=== PATIENT | male | born 1965 | race Caucasian/White ===

== ENCOUNTER → 2017-10-30 | Outpatient (CLI) | payer BC ==
[~2017-10-30] MED LIST: CIPR500T94 PO; COLC0.6T34 PO; INDO75CA3 PO; INSU100V8 SQ; LOSA25TA4 PO; METF10002 PO
--- NOTE | 2017-10-30 10:34 | RAD ---
Indication: Left shoulder pain. Time of exam 10:25 AM 3 views of the left shoulder were obtained. Glenohumeral and acromial clavicular alignment are normal. Acromiohumeral space is normal. No fracture or dislocation is detected. Impression: No acute bony abnormality is detected.
== END | disposition home or self-care (01) ==
LOC: PMG 10:14
PROVIDERS: ATTEND Physician Assistant
DX: M25.512 Pain in left shoulder (principal)
CPT/HCPCS: 73030

== ENCOUNTER → 2019-05-26 | Outpatient (CLI) | payer BC ==
[~2019-05-26] MED LIST changes: +LOSA25TA11 PO; -LOSA25TA4 PO; -METF10002 PO; +METF10007 PO
--- NOTE | 2019-05-26 09:11 | RAD ---
3 views right foot 05/26/2019 12:00 AM Indication: Infected right first toe Comparison: None Findings: No evidence of acute fracture or dislocation is identified articular surfaces are uninterrupted. No erosive changes or significant periosteal reaction is identified. Soft tissue thickening and irregularity involving the distal first toe noted. Note that radiographs can be insensitive for acute osteomyelitis. Atherosclerotic vascular calcification in the feet noted. IMPRESSION: Soft tissue irregularity of the distal first toe without radiographic evidence of chronic osteomyelitis. There is continued clinical concern for acute osteomyelitis, MRI imaging is recommended. Electronically signed by: Abdullahi Upton MD (05/26/2019 9:08 AM) [id number]
== END | disposition home or self-care (01) ==
LOC: PMG 08:15
PROVIDERS: ATTEND Registered Nurse
DX: M79.89 Other specified soft tissue disorders (principal)
CPT/HCPCS: 73630

== ENCOUNTER → 2019-06-03 | Outpatient (CLI) | payer BC ==
[~2019-06-03] MED LIST changes: +IOHEXOL 240 MG/ML 50ML VIAL. ONE
[2019-06-03 09:06] LABS: CREATININE 1.1 mg/dL (0.7-1.3); GFR 69.5
[2019-06-03] MEDS: IOHEXOL 300 MG/ML 75 ML VIAL. IV ONE (09:36)
--- NOTE | 2019-06-03 11:38 | RAD ---
EXAM: CT Abdomen and Pelvis with IV contrast CLINICAL HISTORY: 30 pound weight loss, abdominal pain, umbilical pain and cramping. COMPARISON: none TECHNIQUE: Helical CT of the abdomen and pelvis was performed following the administration of intravenous contrast. Axial, coronal and sagittal reformatted images were generated. PQRS compliance statement - One or more of the following individualized dose reduction techniques were utilized for this study: 1. Automated exposure control 2. Adjustment of the mA and/or kV according to patient size 3. Use of iterative reconstruction technique FINDINGS: Lower chest: Linear opacities in the lower lobe likely scarring/atelectasis. Abdomen and Pelvis: No focal liver lesion. Spleen is unremarkable. Adrenal glands are normal. Pancreas is unremarkable. Gallbladder is normal. No biliary ductal dilatation. Symmetric nephrograms. Subcentimeter hypodense right lower pole renal lesion is too small to characterize. No hydronephrosis. No hydroureter. Bladder is unremarkable. Moderate colonic stool content is seen throughout the colon. Appendix is normal. No small or large bowel dilatation. No evidence of bowel obstruction. Small fat-containing periumbilical hernia with narrow base is seen with trace fat infiltration. No associated fluid is seen. No abdominal or pelvic ascites. No abdominal or pelvic lymphadenopathy. Prominent right common femoral and inguinal lymph nodes are seen, for example a 1.5 x 0.8 cm lymph node is seen. A few prominent mesenteric lymph nodes are also seen. Aorta is normal in caliber. Bones: Osseous structures are grossly unremarkable. IMPRESSION: No abdominal or pelvic lymphadenopathy by size criteria although a few mildly prominent mesenteric and right inguinal/common femoral lymph nodes are seen. No obvious primary malignancy is identified within the limitations of CT technique. Fat-containing periumbilical hernia with trace fat stranding/infiltration, may be symptomatic. Electronically signed by: Adonis Queen MD (06/03/2019 11:35 AM) [facility]
== END | disposition home or self-care (01) ==
LOC: CT 08:23
PROVIDERS: ATTEND Internal Medicine Gastroenterology
DX: K42.9 Umbilical hernia without obstruction or gangrene (principal); N28.89 Other specified disorders of kidney and ureter; R91.8 Other nonspecific abnormal finding of lung field
CPT/HCPCS: 36415; 74177; 82565; 84520; Q9967

== ENCOUNTER → 2019-08-11 | Outpatient (CLI) | payer BC ==
[~2019-08-11] MED LIST changes: -IOHEXOL 240 MG/ML 50ML VIAL. ONE
[2019-08-11 12:22] LABS: BASO # 0.1 x10^3/uL (0.0-0.2); BASO % 1 % (0-3); EOS # 0.5 x10^3/uL (0.0-0.7); EOS % 7 % (0-3); HEMOGLOBIN 15.6 g/dL (13.0-17.5); LYMPH # 2.4 x10^3/uL (1.0-4.8); LYMPH % 33 % (24-48); MEAN CORPUSCULAR HEMOGLOBIN 32 pg (25-35); MEAN CORPUSCULAR HGB CONC 35 g/dL (31-37); MEAN CORPUSCULAR VOLUME 93 fL (79-100); MONO # 0.5 x10^3/uL (0.0-1.1); MONO % 7 % (0-9); NEUT # 3.8 x10^3uL (1.8-7.7); NEUT % 53 % (31-73); PLATELET COUNT 286 x10^3/uL (140-400); RED BLOOD COUNT 4.82 x10^6/uL (4.30-5.70); RED CELL DISTRIBUTION WIDTH 12.2 % (11.5-14.5); WHITE BLOOD COUNT 7.3 x10^3/uL (4.0-11.0)
[2019-08-11 12:36] LABS: ALBUMIN/GLOBULIN RATIO 0.9 (1.0-1.7); ALK PHOS 72 U/L (46-116); ALT (SGPT) 28 U/L (16-63); ANION GAP 8 (6-14); AST (SGOT) 27 U/L (15-37); BLOOD UREA NITROGEN 27 mg/dL (8-26); BUN/CREATININE RATIO 21 (6-20); CALCIUM 9.4 mg/dL (8.5-10.1); CARBON DIOXIDE 30 mmol/L (21-32); CHLORIDE 99 mmol/L (98-107); CREATININE 1.3 mg/dL (0.7-1.3); GFR 57.3; GLUCOSE 134 mg/dL (70-99); POTASSIUM 4.1 mmol/L (3.5-5.1); SODIUM 137 mmol/L (136-145); TOTAL BILIRUBIN 0.3 mg/dL (0.2-1.0); TOTAL PROTEIN 8.4 g/dL (6.4-8.2)
[2019-08-11 12:37] LABS: C REACTIVE PROTEIN < 0.5 mg/L (0-3.3)
[2019-08-11 13:27] LABS: SEDIMENTATION RATE 36 (0-15)
--- NOTE | 2019-08-11 13:32 | RAD ---
EXAM: Right foot, 3 views. HISTORY: Arthritis. COMPARISON: None. FINDINGS: 3 views of the right foot are obtained. There is third proximal interphalangeal joint space narrowing with subchondral sclerosis and subchondral cyst formation. There is bandage material overlying the distal first phalanx. There is a small accessory navicular. There are vascular calcifications. IMPRESSION: 1. Degenerative change involving the right third proximal interphalangeal joint. 2. No acute osseous finding. Electronically signed by: Mckenna Elmore MD (08/11/2019 1:29 PM) [place] [id number]
== END | disposition home or self-care (01) ==
LOC: DXRAD 11:30
PROVIDERS: ATTEND Podiatrist Foot & Ankle Surgery
DX: E11.621 Type 2 diabetes mellitus with foot ulcer (principal); M19.071 Primary osteoarthritis, right ankle and foot; M20.11 Hallux valgus (acquired), right foot; M25.871 Other specified joint disorders, right ankle and foot; R26.89 Other abnormalities of gait and mobility
CPT/HCPCS: 36415; 73630; 80053; 85025; 85651; 86140

== ENCOUNTER → 2020-02-09 | Outpatient (CLI) | payer BC ==
--- NOTE | 2020-02-09 13:14 | RAD ---
FOOT RIGHT 3V History: Ulcer, redness, swelling Comparison: August 11, 2019 Findings: 3 views the right foot are submitted. There has been interval amputation of the first distal phalanx. There is some vascular calcification in. No new aggressive bone destruction or acute fracture is identified. Impression: 1. No aggressive bone destruction or acute fracture is identified. Electronically signed by: Everardo Brandt MD (02/09/2020 1:11 PM) [id number]
== END ==
LOC: DXRAD 11:40
PROVIDERS: ATTEND Podiatrist Foot & Ankle Surgery
DX: M25.475 Effusion, left foot (principal); L97.529 Non-pressure chronic ulcer of other part of left foot with unspecified severity
CPT/HCPCS: 73630

== ENCOUNTER → 2020-03-24 | Outpatient (CLI) | payer BC ==
--- NOTE | 2020-03-24 14:47 | RAD ---
Bilateral lower extremity arterial Doppler dated 03/24/2020. No comparison available. CLINICAL INDICATION: Foot numbness in foot pain. FINDINGS: Grayscale, color-flow and spectral waveform analysis performed to include the arterial tree of both lower extremity. There is normal triphasic flow proximally. Biphasic flow within the calf arteries. Minimal atherosclerotic calcifications throughout. No focal stenosis. Velocity measurements are within the range of normal. IMPRESSION: No evidence of hemodynamically significant arterial stenosis. Electronically signed by: Yinka Mathew MD (03/24/2020 2:44 PM) [facility]
== END | disposition home or self-care (01) ==
LOC: US 13:40
PROVIDERS: ATTEND Podiatrist Foot & Ankle Surgery
DX: I70.8 Atherosclerosis of other arteries (principal); I73.9 Peripheral vascular disease, unspecified
CPT/HCPCS: 93925

== ENCOUNTER → 2020-08-02 | Outpatient (CLI) | payer BC ==
--- NOTE | 2020-08-02 15:51 | RAD ---
EXAM: FOOT RIGHT 3V 08/02/2020 12:00 AM CLINICAL INDICATION:Right foot pain, nonhealing wound COMPARISON:Right foot radiograph 02/09/2020 TECHNIQUE:3 views of the right foot FINDINGS:There is sequela of great toe amputation of the level of the interphalangeal joint. No acute fracture, osseous destruction, or periosteal reaction. Unchanged degenerative joint disease of the third PIP joint. Joint spaces are otherwise maintained. Bone mineralization is normal. There is soft tissue swelling at the stump of the great toe. No soft tissue gas. IMPRESSION: 1. Surgical changes of great toe distal phalanx amputation. No radiographic evidence of osteomyelitis. 2. Stable degenerative joint disease of the third PIP joint. Electronically signed by: Mitra Travis MD (08/02/2020 3:48 PM) [id number]
== END | disposition home or self-care (01) ==
LOC: DXRAD 10:00
PROVIDERS: ATTEND Podiatrist Foot & Ankle Surgery
DX: M19.071 Primary osteoarthritis, right ankle and foot (principal); E11.621 Type 2 diabetes mellitus with foot ulcer; Z89.411 Acquired absence of right great toe
CPT/HCPCS: 73630

== ENCOUNTER → 2021-02-14 | Outpatient (CLI) | payer BC ==
--- NOTE | 2021-02-15 12:11 | RAD ---
ADDENDUM #1 Addendum: Clinical indication: Diabetic ulcer. Electronically signed by: Mitra Travis MD (02/15/2021 12:47 PM) [id number] ORIGINAL REPORT EXAM: XR FOOT_LEFT 3 VIEWS 02/14/2021 10:48 AM CLINICAL INDICATION: 3 views of the left foot COMPARISON: None TECHNIQUE: 3 views of the left foot FINDINGS: No acute fracture. Alignment is normal. There is mild joint space narrowing and small oste ophytes at the great toe MTP joint. There appears to be noninstrumented osseous fusion of the navicul ocuneiform, intercuneiform, and second and third metatarsophalangeal joints. Tiny calcaneal enthesoph ytes. No focal soft tissue abnormality. IMPRESSION: 1. Fusion of the midfoot as described. 2. Mild degenerative joint disease of the great toe MTP joint. Electronically signed by: Mitra Travis MD (02/15/2021 12:08 PM) [id number]
== END ==
LOC: DXRAD 10:35
PROVIDERS: ATTEND Podiatrist Foot & Ankle Surgery
DX: M19.072 Primary osteoarthritis, left ankle and foot (principal); E11.621 Type 2 diabetes mellitus with foot ulcer; L97.529 Non-pressure chronic ulcer of other part of left foot with unspecified severity; M24.675 Ankylosis, left foot
CPT/HCPCS: 73630

== ENCOUNTER → 2021-07-10 | Outpatient (CLI) | payer BC ==
--- NOTE | 2021-07-10 17:46 | RAD ---
EXAM: Bilateral shoulders, 3 views. HISTORY: Pain. COMPARISON: None. FINDINGS: 3 views of both shoulders are obtained. There is mild bilateral inferior glenoid spurring, subchondral sclerosis and subchondral cyst formation. There is mild bilateral acromioclavicular joint spurring, subchondral sclerosis and subchondral cyst formation. There is no fracture, dislocation or subluxation. IMPRESSION: Mild bilateral glenohumeral and acromioclavicular joint osteoarthritis. No acute osseous finding. Electronically signed by: Mkcenna Elmore MD (07/10/2021 5:44 PM) [id number]
== END ==
LOC: DXRAD 16:50
PROVIDERS: ATTEND Physician Assistant
DX: M19.012 Primary osteoarthritis, left shoulder (principal); M19.011 Primary osteoarthritis, right shoulder; M77.8 Other enthesopathies, not elsewhere classified; M25.812 Other specified joint disorders, left shoulder; M25.811 Other specified joint disorders, right shoulder
CPT/HCPCS: 73030-50

== ENCOUNTER → 2022-01-16 | Outpatient (CLI) | payer BC ==
[~2022-01-16] MED LIST changes: +INDO75CA10 PO; -INDO75CA3 PO
--- NOTE | 2022-01-16 12:59 | RAD ---
3 views left foot 01/16/2022 10:54 AM Indication: Reason: PAIN, NON HEALING WOUND LATERAL SIDE OF FOOT Comparison: Left foot radiographs February 14, 2021 Findings: No acute fracture or dislocation is identified. Fusion of the midfoot noted. Bandaging note d over the lateral distal left foot. No erosive or lytic changes suggestive of chronic osteomyelitis identified. Atherosclerotic vascular calcification noted. IMPRESSION: 1.No radiographic evidence of acute osseous abnormality 2. Left midfoot fusion. Electronically signed by: Abdullahi Upton MD (01/16/2022 12:56 PM) [id number]
== END ==
LOC: RAD 10:41
PROVIDERS: ATTEND Physician Assistant
DX: E11.621 Type 2 diabetes mellitus with foot ulcer (principal)
CPT/HCPCS: 73630